=== PATIENT | male | born 1935 | race African-American/Black ===

== ENCOUNTER 2018-10-25 10:44 | Outpatient (CLI) | payer MEDICARE, OTHER ==
[~2018-10-25 10:44] MED LIST: ALEVE220 M2 PO; AMLODIPINE BESYL5 MG ORAL; CARVEDILOL12.5 MG ORAL; CLOPIDOGREL75 MG ORAL; DIOVAN320 MG ORAL; EMBREL; ENBREL50 MG/1 ML SUBQ; GEMFIBROZIL600 MG ORAL; LORATADINE10 M1 PO; RANITIDINE HCL150 M1 ORAL; TAMSULOSIN HCL0.4 MG ORAL; TRAVATAN Z5 ML OP
--- NOTE | 2018-10-25 15:14 | Diagnostic Imaging Report ---
Indications: Sinus congestion Technique: Spiral images obtained through the maxillofacial sinuses. No IV contrast utilized. Multiplanar reconstructions were generated.Total dose length product 556.08 mGycm. CTDIvol(s) 28.19 mGy. Dose reduction achieved using automated exposure control Comparison: none Findings: A mucous retention cyst is seen in the lateral wall of the right maxillary sinus. There is minimal medial mucosal thickening of the left maxillary sinus. There is mucosal thickening involving the anterior ethmoids bilaterally. The frontal sinuses are not pneumatized. The sphenoid sinuses are clear. The nasal septum is midline. Neither maxillary ostia is conclusively identified and the possibility of obstruction of either should be considered. There is evidence of prior bilateral cataract surgery. The salivary glands are unremarkable Impression: Minimal sinus disease, as described, including right maxillary mucous retention cyst, minimal left maxillary mucosal disease, bilateral anterior ethmoid mucosal disease. Neither maxillary ostium conclusively demonstrated, obstruction not excludable The CT scanner at [facility] is accredited by the [employer] and the scans are performed using protocols designed to limit radiation exposure to as low as reasonably achievable to attain images of sufficient resolution adequate for diagnostic evaluation.
== END 2018-10-25 12:44 | disposition home or self-care (01) ==
LOC: CAT 10:44
DX: J32.0 Chronic maxillary sinusitis (principal); M27.40 Unspecified cyst of jaw
CPT/HCPCS: 70486

== ENCOUNTER 2020-01-04 12:58 | Inpatient (IN) | payer MEDICARE, OTHER ==
[~2020-01-04] VITALS: Ht 177.8 cm; Wt 83.9 kg
[2020-01-04] VITALS (15 sets, daily range): BP systolic 103–125; BP diastolic 54–84
[2020-01-04] MEDS ORDERED: dilTIAZem HCl 25mg/5ml Inj IVP ONE (13:15)
[2020-01-04] MEDS ORDERED: dilTIAZem Premix 125mg/125ml 125 ML IVPB ONE (13:15)
--- NOTE | 2020-01-04 13:20 | Emergency Room Report ---
History of Present Illness General Chief Complaint: To Be Triaged Present Illness HPI 84-year-old male with a history of CAD status post triple bypass, hypertension, here with rapid heartbeat. Patient underwent EKG at a routine doctor's appointment today and was noted to have a fast heart rate and was sent immediately to the emergency department. Patient has no known history of this. At this time he does not have any complaints whatsoever. Denies headache, vision change, lightheadedness, fevers, chills, chest pain, shortness of breath, back pain, abdominal pain, nausea, vomiting, diarrhea, dysuria. Allergies: Coded Allergies: ASPIRIN (Verified Allergy, Unknown, Rash, 04/07/13) ATORVASTATIN (Verified Allergy, Unknown, HIP PAIN, 04/08/13) HIP PAIN CELECOXIB (Verified Allergy, Unknown, Rash, 04/08/13) RASH CODEINE (Verified Allergy, Rash, 04/08/13) IBUPROFEN (Verified Adverse Reaction, Unknown, 04/08/13) ITCHING Nursing Documentation-PMH Hx Hypertension: Yes Hx Diabetes: Yes - BORDERLINE, NO MEDS Hx Cancer: No Hx Neurological Problems: No Review of Systems All Other Systems: negative except mentioned in HPI Physical Exam Sp02 EP Interpretation: reviewed, normal General Appearance: no apparent distress, alert, non-toxic Head: normocephalic, atraumatic Eyes: bilateral eye normal inspection, bilateral eye PERRL ENT: hearing grossly normal, normal pharynx, no angioedema, normal voice Neck: full range of motion, supple/symm/no masses Respiratory: chest non-tender, lungs clear, normal breath sounds, speaking full sentences Cardiovascular #1: no edema, other - Midline sternotomy scar. Rate 135 bpm. Regular Cardiovascular #2: 2+ carotid (R), 2+ carotid (L), 2+ radial (R), 2+ radial (L), 2+ dorsalis pedis (R), 2+ dorsalis pedis (L) Gastrointestinal: normal bowel sounds, non tender, soft, non-distended, no guarding, no rebound Rectal: deferred Genitourinary: normal inspection, no CVA tenderness Musculoskeletal: back normal, normal range of motion, gait/station normal, non- tender Neurologic: alert, motor strength/tone normal, oriented x3, sensory intact, responsive, speech normal Psychiatric: judgement/insight normal, memory normal, mood/affect normal, no suicidal/homicidal ideation Lymphatic: no adenopathy Medical Decision Making Diagnostic Impression: Primary Impression: Atrial flutter with rapid ventricular response ER Course Total critical care time: Approximately 45 minutes Due to a high probability of clinically significant, life threatening de terioration, the patient required the highest level of preparedness to intervene emergently and I personally spent this critical care time directly and personally managing the patient. This critical care time included obtaining a history, examining the patient, pulse oximetry, ordering and reviewing studies, ordering treatments, evaluating response to treatment and updating management plan as needed, frequent reassessment and discussion with other providers as well as arranging for ultimate disposition. This critical to care time was performed to assess and manage the high probability of life-threatening deterioration that could result in multiorgan failure. This critical care time is separate from the separately billable procedures and treating other patients. EKG 1310: EKG: Atrial flutter with rapid ventricular response 136 bpm, no ischemia, intervals WNL. No ectopy Rhythm strip: patient monitored for arrhythmias - no malignant dysrhythmias, runs of PVCs, nor pauses noted Cardizem bolus and drip given EKG 1320: EKG: Rate 87 bpm, atrial flutter, no ischemia, intervals WNL. No ectopy Rhythm strip: patient monitored for arrhythmias - no malignant dysrhythmias, runs of PVCs, nor pauses noted Laboratory Tests Test 01/04/20 13:25 White Blood Count 15.1 K/UL (4.8-10.8) H Red Blood Count 3.47 M/UL (4.70-6.10) L Hemoglobin 10.3 G/DL (14.2-18.0) L Hematocrit 34.2 % (42.0-52.0) L Mean Corpuscular Volume 99 FL (80-99) Mean Corpuscular Hemoglobin 29.6 PG (27.0-31.0) Mean Corpuscular Hemoglobin Concent 30.0 G/DL (32.0-36.0) L Red Cell Distribution Width 13.9 % (11.6-14.8) Platelet Count 196 K/UL (150-450) Mean Platelet Volume 6.5 FL (6.5-10.1) Neutrophils (%) (Auto) 78.5 % (45.0-75.0) H Lymphocytes (%) (Auto) 9.0 % (20.0-45.0) L Monocytes (%) (Auto) 10.3 % (1.0-10.0) H Eosinophils (%) (Auto) 1.2 % (0.0-3.0) Basophils (%) (Auto) 1.0 % (0.0-2.0) Sodium Level 132 MMOL/L (136-145) L Potassium Level 3.5 MMOL/L (3.5-5.1) Chloride Level 99 MMOL/L (98-107) Carbon Dioxide Level 25 MMOL/L (21-32) Anion Gap 8 mmol/L (5-15) Blood Urea Nitrogen 21 mg/dL (7-18) H Creatinine 1.6 MG/DL (0.55-1.30) H Estimated Glomerular Filtration Rate 50.3 mL/min (>60) Glucose Level 116 MG/DL (74-106) H Calcium Level 9.6 MG/DL (8.5-10.1) Total Bilirubin 0.8 MG/DL (0.2-1.0) Aspartate Amino Transferase (AST) 39 U/L (15-37) H Alanine Aminotransferase (ALT) 27 U/L (12-78) Alkaline Phosphatase 98 U/L (46-116) Troponin I 0.000 ng/mL (0.000-0.056) Pro-B-Type Natriuretic Peptide 8070 pg/mL (0-125) H Total Protein 7.0 G/DL (6.4-8.2) Albumin 2.2 G/DL (3.4-5.0) L Globulin 4.8 g/dL Albumin/Globulin Ratio 0.5 (1.0-2.7) L 84-year-old male here with rapid ventricular rate. Patient was tachycardic in the 130s on arrival to the emergency department. EKG revealed atrial flutter which is a new diagnosis for the patient. Patient was given a Cardizem bolus and drip. Currently on the Cardizem drip. Dr. Lyon his primary care provider was informed. Currently the plan is to keep the patient in the ICU while on the drip. Signed out to oncoming physician Dr. Jennings. Travis Boyd M.D. Jan 04, 2020 13:20
--- NOTE | 2020-01-04 13:28 | NUR ---
ED Nurse Note: Patient walked in due to palpitation. Per patient, he was referred by Dr Lyon due to heart rate elevation with EKG evaluation. Patient denies presence of CP or SOB. Patient relates occasional lightheadedness when watching TV. Patient is AAO x4, follows commands with non labored breathing. Sinus tach on school bus monitor.
--- NOTE | 2020-01-04 13:50 | NUR ---
ED Nurse Note: Blood specimen sent to lab.
[2020-01-04 13:57] LABS: EOSINOPHILS % (AUTO) 1.2 % (0.0-3.0); HEMATOCRIT 34.2 % (42.0-52.0); HEMOGLOBIN 10.3 G/DL (14.2-18.0); MEAN CORPUSCULAR VOLUME 99 FL (80-99); MONOCYTES % (AUTO) 10.3 % (1.0-10.0); NEUTROPHILS % (AUTO) 78.5 % (45.0-75.0); PLATELET COUNT 196 K/UL (150-450); RED BLOOD COUNT 3.47 M/UL (4.70-6.10); RED CELL DISTRIBUTION WIDTH 13.9 % (11.6-14.8); WHITE BLOOD COUNT 15.1 K/UL (4.8-10.8)
--- NOTE | 2020-01-04 14:00 | NUR ---
ED Nurse Note: IVAN okay not to collect uirne sample at this time.
[2020-01-04 14:08] LABS: CALCIUM 9.6 MG/DL (8.5-10.1); CREATININE 1.6 MG/DL (0.55-1.30); POTASSIUM 3.5 MMOL/L (3.5-5.1)
[2020-01-04 14:14] LABS: ALBUMIN 2.2 G/DL (3.4-5.0); ALBUMIN/GLOBULIN RATIO 0.5 (1.0-2.7); BILIRUBIN,TOTAL 0.8 MG/DL (0.2-1.0)
--- NOTE | 2020-01-04 14:30 | NUR ---
ED Nurse Note: Patient is calm and no acute distress at this time. Pt still denies presence of CP and HR at 98 at this time. ERMDa aware.
--- NOTE | 2020-01-04 15:22 | Diagnostic Imaging Report ---
Indication: Shortness of breath Technique: XRAY Chest 1v Comparison: None Findings: Heart size is within normal limits. There is evidence of prior cardiac surgery with median sternotomy and multiple surgical clips suggesting CABG. No pleural effusion or pneumothorax. No radiographic evidence to suggest pulmonary edema. There is elevation of the right hemidiaphragm with mild streaky opacities at the right base. No acute abnormality. IMPRESSION: Elevation of the right hemidiaphragm with adjacent streaky opacity at the right base, likely atelectasis or scarring. Evidence of prior pelvic surgery with median sternotomy and multiple surgical clips suggesting CABG. Correlate with history.
--- NOTE | 2020-01-04 15:30 | NUR ---
ED Nurse Note: Covid19 swab sent.
--- NOTE | 2020-01-04 15:31 | NUR ---
REPORT GIVEN TO MERCEDES IN ICU PATIENT IS TO BE TRANSFERD TO ROOM 246 F VIA ACLS PROTOCOL CONTINUE TO BE ON MARC YU
--- NOTE | 2020-01-04 16:00 | NUR ---
NURSE NOTES: Patient received from ED. Patient stable, AOx4 with no complaints of pain. No s/sx of distress. Controlled afib on monitor worker. Heart sounds benign. Cardizem drip infusing from ED at 5mg through peripheral IV. Breath sounds diminished in all lobes with RR even and unlabored on RA with o2 sat 100%. Radial pulses present. Pedal pulses present with trace edema with slight pitting. Voided in urinal 200mL tay, clear urine. Side rails upx2, call light within reach, bed low and locked. Belongings with patient including glasses. Last BM reported yesterday. Normal in consistency.
[2020-01-04] MEDS ORDERED: dilTIAZem Premix 125mg/125ml 125 ML IVPB SCH (17:00)
[2020-01-04] MEDS: dilTIAZem HCl 60mg tab ORAL SCH (17:43)
[2020-01-04] MEDS: Eliquis 5mg tablet ORAL SCH (17:44)
--- NOTE | 2020-01-04 18:05 | NUR ---
NURSE NOTES: Patient given scheduled medications. HR varying from 79-92. Will allow for PO cardizem to take effect before titrating drip.
--- NOTE | 2020-01-04 19:00 | NUR ---
NURSE NOTES: Received patient and report from MARIA R Barker. Patient is observed resting in bed and remains alert and oriented x3-4. No pain noted upon assessment. Pt is currently on 2L NC with an O2 saturation of 100% noted. Bilateral lower lobe breath sounds noted to be mildly diminished upon auscultation. Pt noted to be AFib on tele monitor with a HR of 79. L AC 20g IV catheter noted which remains asymptomatic, intact and patent. Cardizem currently infusing at 5mg/hr will titrate per order. No s/sx of adverse effects noted. Active bowel sounds noted in all four quadrants; abdomen remains round, soft and nontender. Diagnostics reviewed at bedside. Skin remains intact. R arm deformity noted upon assessment, pt states it healed improperly from a fall 26 years ago. Fall, Aspiration and Skin precautions observed. Pt remains resting in bed; Bed remains in the lowest position with the safety wheels engaged, call light within reach, side rails up x3 and bed alarm activated. Will continue plan of care. Will continue to monitor.
--- NOTE | 2020-01-04 19:14 | NUR ---
NURSE HAND-OFF REPORT: Latest Vital Signs: Temperature 97.3 , Pulse 92 , B/P 125 /66 , Respiratory Rate 24 , O2 SAT 100 , Nasal Cannula, O2 Flow Rate 2.0 . Vital Sign Comment: [] EKG Rhythm: Atrial Fibrillation Rhythm change?: N MD Notified?: - MD Response: Latest Rojas Fall Score: Fall Risk: Safety Measures: Call light Within Reach, Bed Alarm Zone 1, Side Rails Side Rails x2, Bed position Low and Locked. Fall Precautions: Patient Fall Education Report given to [].
--- NOTE | 2020-01-04 21:00 | NUR ---
NURSE NOTES: Pt refuses bed bath and linen change at this time. Bedside assessment performed, assessed pt for pain with a FLACC score of 0 noted. HR remains <80 per order, will attempt to titrate Cardizem. Will continue to monitor and reassess. Zosyn administered as ordered, no adverse effects noted at this time. Antibiotic continues to infuse. R FA 22g IV catheter placed on first attempt without incident. Respiratory status remains stable. Pt repositioned for comfort and safety. Fall, Aspiration and Skin precautions observed. Pt remains resting in bed; Bed remains in the lowest position with the safety wheels engaged, call light within reach, side rails up x3 and bed alarm activated. Will continue plan of care. Will continue to monitor.
[2020-01-04] MEDS: Carvedilol 6.25mg Tab ORAL SCH (21:47)
[2020-01-04] MEDS: Piperacillin/Tazobactam 3.375 GM in NS 110 ML IVPB SCH (22:25)
--- NOTE | 2020-01-04 23:00 | NUR ---
NURSE NOTES: Pt noted to be sleeping comfortably at this time. Bedside assessment performed, assessed pt for pain with a FLACC score of 0 noted. HR remains <80 per order, will attempt to titrate Cardizem. Will continue to monitor and reassess. Respiratory status remains stable. STAT UA order noted, pt states he is unable to void at this time. Pt remains alert and oriented x4, no in and out cath at this time. Pt repositioned for comfort and safety. Fall, Aspiration and Skin precautions observed. Pt remains resting in bed; Bed remains in the lowest position with the safety wheels engaged, call light within reach, side rails up x3 and bed alarm activated. Will continue plan of care. Will continue to monitor.
--- NOTE | 2020-01-04 23:45 | Consultation ---
DATE OF CONSULTATION: 01/04/2020 CARDIOLOGY CONSULTATION CONSULTING PHYSICIAN: Ehsan Lyon MD REFERRING PHYSICIAN: Anjum Gaston MD REASON FOR CONSULTATION: Supraventricular tachycardia. HISTORY OF PRESENT ILLNESS: This 84-year-old male with a history of coronary artery disease and coronary artery bypass graft surgery over 25 years ago has been feeling poorly for the past 2 days. Today, he was seen again in my office and noted to have a rapid heart rate of over 140. He also was somewhat weak, confused, and hypoxic on oxygen saturation taken at my office notably at 84%. He was driven to the emergency room by me for further evaluation. The patient denies chest pain or shortness of breath. His significant other notes him to be weak and withdrawn with poor appetite for the past couple of days. He denies nausea, vomiting, abdominal pain, dysuria, or frequency. He denies cough, congestion, or fever. There is no known history of COVID-19 exposure. ALLERGIES: Notable for aspirin, statin drugs, ibuprofen, celecoxib, and codeine. He is not allergic to all nonsteroidal drugs however. PAST MEDICAL HISTORY: 1. Rheumatoid arthritis. 2. Hypertensive heart disease. 3. Type 2 diabetes mellitus, which is diet controlled. 4. Coronary artery disease. 5. Hypertriglyceridemia. 6. Prostatic hypertrophy. 7. Diverticulosis with history of diverticulitis. 8. Allergic rhinitis. 9. Prior joint surgeries. 10. B12 deficiency due to pernicious anemia. 11. Glaucoma with blindness. 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 There is no history of substance abuse. He has a very distant smoking history. He lives with his significant other. FAMILY HISTORY: Noncontributory. REVIEW OF SYSTEMS: A 10-point review of systems performed, all systems negative other than noted above. PHYSICAL EXAMINATION: GENERAL: Withdrawn, slightly, confused, but coherent. No acute distress. VITAL SIGNS: Blood pressure 117/71, heart rate 86, respirations 24, afebrile. HEENT: Conjunctivae pink. Vision severely impaired. Oropharynx clear. NECK: Supple with no apparent jugular venous distention. LUNGS: With bilateral breath sounds. Diminished at the bases. CARDIAC: Regular rhythm. Rapid rate. Normal S1, S2. No appreciable murmur. ABDOMEN: Soft. No bruits. Slightly distended. EXTREMITIES: No clubbing or cyanosis. No edema. There are severe joint deformities consistent with rheumatoid of the extremities. NEUROLOGIC: No focal deficits. LABORATORY DATA: Reviewed. EKG was sinus with atrial flutter/supraventricular tachycardia at 141. White count 15.2, hemoglobin 10.3. Sodium 132, potassium 3.5, bicarb 25, BUN 21, creatinine 1.6. Albumin 2.2. Chest x-ray, right basilar atelectasis. Troponin is 0. IMPRESSION: 1. Paroxysmal supraventricular tachyarrhythmias, likely atrial flutter. 2. Ischemic heart disease with stable angina. 3. Metabolic encephalopathy. 4. Acute on chronic diastolic congestive heart failure with elevated natriuretic peptide of over 8000. 5. Rheumatoid arthritis. 6. Hyponatremia. 7. Borderline hypokalemia. 8. Leukocytosis. 9. Severe protein-calorie malnutrition. PLAN: 1. ICU monitoring. 2. IV Cardizem. Transition to oral dosing in combination with beta blockade. 3. Full anticoagulation for cardioembolic prophylaxis. 4. Consider further antiarrhythmic therapy. 5. Additional potassium replacement. 6. No diuresis at this time. 7. Reassess volume status and adjust therapy accordingly. 8. Protein supplements. 9. Empiric antimicrobials. 10. Await results of urine studies and abdominal ultrasound. Ehsan Lyon M.D. DR: NATHAN JOB#: [id number] CC:
[2020-01-05] VITALS (27 sets, daily range): BP systolic 105–141; BP diastolic 37–72
[2020-01-05] MEDS: dilTIAZem HCl 60mg tab ORAL SCH ×6 (00:05→23:32)
--- NOTE | 2020-01-05 01:00 | NUR ---
NURSE NOTES: Pt noted to be sleeping comfortably at this time. Bedside assessment performed, assessed pt for pain with a FLACC score of 0 noted. HR remains <80 per order, will attempt to titrate Cardizem. Cardizem continues to infuse at 2.5mg/hr. Will continue to monitor and reassess. Respiratory status remains stable. Pt repositioned for comfort and safety. Fall, Aspiration and Skin precautions observed. Pt remains resting in bed; Bed remains in the lowest position with the safety wheels engaged, call light within reach, side rails up x3 and bed alarm activated. Will continue plan of care. Will continue to monitor.
--- NOTE | 2020-01-05 03:00 | NUR ---
NURSE NOTES: Pt noted to be sleeping comfortably at this time. Bedside assessment performed, assessed pt for pain with a FLACC score of 0 noted. HR now noted to remain in the 60's subsequently Cardizem on hold. Will continue to monitor and reassess. Respiratory status remains stable. Pt repositioned for comfort and safety. Fall, Aspiration and Skin precautions observed. Pt remains resting in bed; Bed remains in the lowest position with the safety wheels engaged, call light within reach, side rails up x3 and bed alarm activated. Will continue plan of care. Will continue to monitor.
--- NOTE | 2020-01-05 05:00 | NUR ---
NURSE NOTES: Pt noted to be sleeping comfortably at this time. Bedside assessment performed, assessed pt for pain with a FLACC score of 0 noted. Cardizem gtt remains on hold. HR noted to fluctuate from 55-75, po Cardizem held for patient safety. Will continue to monitor and reassess. Respiratory status remains stable. Pt repositioned for comfort and safety. Fall, Aspiration and Skin precautions observed. Pt remains resting in bed; Bed remains in the lowest position with the safety wheels engaged, call light within reach, side rails up x3 and bed alarm activated. Will continue plan of care. Will continue to monitor.
[2020-01-05] MEDS: Piperacillin/Tazobactam 3.375 GM in NS 110 ML IVPB SCH ×3 (05:14→21:49)
--- NOTE | 2020-01-05 07:02 | NUR ---
NURSE HAND-OFF REPORT: Latest Vital Signs: Temperature 98.2 , Pulse 65 , B/P 120 /52 , Respiratory Rate 19 , O2 SAT 100 , Nasal Cannula, O2 Flow Rate 2.0 . Vital Sign Comment: VS remained stable for duration of shift EKG Rhythm: Atrial Fibrillation Rhythm change?: N MD Notified?: N MD Response: N/A Latest Rojas Fall Score: Fall Risk: Safety Measures: Call light Within Reach, Bed Alarm Zone 2, Side Rails Side Rails x3, Bed position Low and Locked. Fall Precautions: Yellow Socks Door Sign Patient Fall Education Report given to MARIA R Garcia. Endorsed plan of care.
[2020-01-05 07:16] LABS: APPEARANCE,URINE SLIGHTLY CLOUDY; BILIRUBIN, URINE NEGATIVE (NEGATIVE); GLUCOSE, URINE (UA) NEGATIVE (NEGATIVE); KETONES,URINE NEGATIVE (NEGATIVE); LEUKOCYTE ESTERASE ,URINE 1+ (NEGATIVE); NITRITE,URINE NEGATIVE (NEGATIVE); PH,URINE 6 (4.5-8.0); PROTEIN,URINE 2+ (NEGATIVE); UROBILINOGEN,URINE NORMAL MG/DL (0.0-1.0)
[2020-01-05 07:30] LABS: COLOR,URINE YELLOW
--- NOTE | 2020-01-05 07:30 | NUR ---
NURSE NOTES: Patient received from Tabitha HECK. Patient stable, AOx4 with no complaints of pain. No s/sx of distress. Controlled afib on environmental monitoring technician. Heart sounds benign. Cardizem drip stopped at this time. Breath sounds diminished in all lobes with RR even and unlabored on RA with o2 sat 100%. Radial pulses present. Pedal pulses present with trace edema with slight pitting. Voided in urinal 150mL tay, clear urine. Side rails upx2, call light within reach, bed low and locked. Belongings with patient including glasses. No BM.
--- NOTE | 2020-01-05 08:30 | History and Physical Report ---
DATE OF ADMISSION: 01/04/2020 CHIEF COMPLAINT: SVT. HISTORY OF PRESENT ILLNESS: The patient is an pleasant 84-year-old male, well known to me. He has a history of ischemic cardiomyopathy status post CABG, rheumatoid arthritis, hypertension, diabetes, BPH, and hyperlipidemia who presented from home with complaints of one week of progressive shortness of breath, tachycardia, and palpitation. According to the patient, he was well until several days prior to admission when he noted the onset of mild shortness of breath. He had a nonproductive cough, noted that his heart rate was elevated. He saw his tailer in who recommended that he go to the emergency room. On evaluation there, the patient noted to be in SVT. He was given IV Cardizem and later put on a Cardizem drip and is now admitted to intensive care unit for further evaluation and care. PAST MEDICAL HISTORY: As above. PAST SURGICAL HISTORY: Includes CABG. CURRENT MEDICATIONS: Reconciled and reviewed. ALLERGIES: Include aspirin, statin, ibuprofen, Celebrex, and codeine. FAMILY HISTORY: Noncontributory. SOCIAL HISTORY: Negative for tobacco, ethanol, or drugs. REVIEW OF SYSTEMS: GENERAL: No fevers or chills. HEENT: No headaches or visual changes. CARDIOPULMONARY: No chest pain. Positive shortness of breath. GASTROINTESTINAL: No nausea or vomiting. GENITOURINARY: No urgency or frequency. MUSCULOSKELETAL: No joint pain or swelling. NEUROLOGIC: No history of seizures. PHYSICAL EXAMINATION: VITAL SIGNS: Temperature 98.2, pulse 63, respirations 21, and blood pressure 112/54. GENERAL: The patient is well developed, no apparent distress. Alert and oriented x3. HEENT: Head normocephalic and atraumatic. Sclerae anicteric. Oropharynx clear. NECK: Supple. HEART: Regular rate and rhythm. LUNGS: Clear to auscultation bilaterally. ABDOMEN: Soft, nontender, and nondistended. EXTREMITIES: Without clubbing, cyanosis, or edema. The patient is noted to have joint deformities in the upper extremities. NEUROLOGIC: Nonfocal. LABORATORY DATA: White count 15, hemoglobin 10, hematocrit 34. Sodium 132, potassium 3.5, BUN 21, creatinine 1.6. Natriuretic peptide level is 8000. Chest x-ray showed elevated right hemidiaphragm with questionable streaky opacity at the right base. The patient's rapid COVID test was negative. ASSESSMENT: This is an 84-year-old male admitted with complaints of shortness of breath secondary to SVT problems: 1. SVT, currently better controlled. 2. History of ischemic cardiomyopathy. 3. Hypertension. 4. Diabetes. 5. History of rheumatoid arthritis. PLAN: 1. IV and oral Cardizem, beta blockade as tolerated. 2. Supplemental oxygen. 3. Monitor electrolytes and replace as needed. 4. Empiric antibiotic therapy to cover for pneumonia, stroke prophylaxis with Eliquis. 5. The patient's status is currently guarded. Anjum Gaston M.D. DR: Beth JOB#: [id number] CC:
[2020-01-05] MEDS: Carvedilol 6.25mg Tab ORAL SCH ×2 (09:00→20:53)
[2020-01-05] MEDS: Eliquis 5mg tablet ORAL SCH ×2 (09:13→18:08)
--- NOTE | 2020-01-05 09:30 | NUR ---
NURSE NOTES: Patient stable with no s/sx of pain or distress. Medications given. Will space out cardiac medications due to reported sensitivity/response last night.
[2020-01-05 11:46] LABS: HEMATOCRIT 29.6 % (42.0-52.0); HEMOGLOBIN 9.3 G/DL (14.2-18.0); MEAN CORPUSCULAR VOLUME 95 FL (80-99); NEUTROPHILS % (AUTO) 75.5 % (45.0-75.0); PLATELET COUNT 207 K/UL (150-450); RED BLOOD COUNT 3.13 M/UL (4.70-6.10); RED CELL DISTRIBUTION WIDTH 14.3 % (11.6-14.8); WHITE BLOOD COUNT 12.9 K/UL (4.8-10.8)
[2020-01-05 11:47] LABS: BASOPHILS % (AUTO) 0.8 % (0.0-2.0); LYMPHOCYTES % (AUTO) 9.5 % (20.0-45.0); MONOCYTES % (AUTO) 11.3 % (1.0-10.0)
--- NOTE | 2020-01-05 12:10 | NUR ---
WELDING PROCESS SPECIALIST NOTE SW met w/ pt and completed the psychosocial assessment. Pt presents as A&O4x. PT resides w/ his caregiver at [id number], [place] [address]. Pt receives SS service 135 hours/mo. Pt has two adult daughters living in [place], [place] and [place]. Pt reports he is ambulatory w/o DME, however his caregiver always accompanies w/ him when he walks, holding her arm. Pt reports his caregiver assists him w/ some ADLs and IADLs including bathing and transportation. Pt reports he receives sufficient support from his caregiver. Pt denies having substance abuse issue/mental health issue. Per Mr. Smalls, his caregiver, Rere Cartagena has financial POA document. However, he was unsure of his medical POA. Pt expresses full code. Pt does not share any social service concern/needs at this time. SW to F/U as needed. Emergency contact: Rere Cartagena (caregiver) [phone]
[2020-01-05 12:29] LABS: ALBUMIN 1.9 G/DL (3.4-5.0); ALBUMIN/GLOBULIN RATIO 0.5 (1.0-2.7); BILIRUBIN,TOTAL 0.5 MG/DL (0.2-1.0); CALCIUM 8.3 MG/DL (8.5-10.1); CREATININE 1.4 MG/DL (0.55-1.30); POTASSIUM 2.8 MMOL/L (3.5-5.1)
[2020-01-05] MEDS ORDERED: Varibar Thin Liquid powder 148gm MC PRN (14:15)
[2020-01-05] MEDS ORDERED: Varibar Nectar 240ml MC PRN (14:15)
[2020-01-05] MEDS ORDERED: Varibar Pudding 230ml MC PRN (14:15)
[2020-01-05] MEDS ORDERED: Varibar Honey 250ml MC PRN (14:15)
--- NOTE | 2020-01-05 14:30 | NUR ---
NURSE HAND-OFF REPORT: Latest Vital Signs: Temperature 97.7 , Pulse 63 , B/P 124 /60 , Respiratory Rate 21 , O2 SAT 100 , Nasal Cannula, O2 Flow Rate 2.0 . Vital Sign Comment: STABLE EKG Rhythm: Atrial Fibrillation Rhythm change?: N MD Notified?: - MD Response: Latest Rojas Fall Score: Fall Risk: Safety Measures: Call light Within Reach, Bed Alarm Zone 2, Side Rails Side Rails x3, Bed position Low and Locked. Fall Precautions: Yellow Socks Door Sign Patient Fall Education Report given to Vignesh RN. Patient stable at this time. Potassium level reported to Dr. Lyon and orders received. 40mEq of potassium and Zosyn given now. Endorsed plan of care and order to transfer to telemetry.
--- NOTE | 2020-01-05 14:31 | NUR ---
NURSE NOTES: Received patient from Radha HECK. Patient is awake, alert and oriented x4. Sinus Rhythm on the heart monitor, HR 62. Receiving oxygen via 2L/min nasal cannula, O2 saturation at 100%. IV site is left AC 20g and left forearm 22g patent and intact. Bed is locked, placed in lowest position, side rails up x3, bed alarm on, head of bed elevated, call light within reach. Will continue to monitor.
--- NOTE | 2020-01-05 15:00 | NUR ---
CASE MANAGEMENT:REVIEW LATE ENTRY 84 YR OLD FEMALE PRESENTED TO ER CC: SENT FROM MD'S OFFICE PMH: TRIPLE BYPASS SI: AFLUTTER W/RVR 97.8 135 18 103/65 97% ON RA WBC+15.1 NA-132 BUN+21 CR+1.6 BNP+8070 IS: IV CARDIZEM X2 500CC NS BOLUS CXR : TO TELEMETRY UNIT
--- NOTE | 2020-01-05 15:34 | NUR ---
NURSE NOTES: Patient seen by Speech Therapist at bedside.
--- NOTE | 2020-01-05 16:13 | NUR ---
Bedside Swallow evaluation received from dr. Gaston. Chart reviewed and RN interviewed relative to patients hx, and evaluation completed dysphagia risk factors for this 84 y.o. gentleman include hx of hypoxia, shortness of breath. Initial Impression: Patient presents with efficacy of oropharyngeal phase of swallow essentially intact. He presents as safe for soft solids and thin liquids. Earlier, staff report patient responding with coughing when drinking thin liquids. During this visit there were no overt s/s of aspiration. He was able to follow commands for an oral motor exam. Lingual/labial/mandibular musculature present as intact relative to strength/ROM/coordination. Dentition is WFL (permanent teeth/some missing). With P.O. trials of uncontrolled amounts of thin via straw, puree presented via spoon, and soft solid presented in bite size pieces patient demonstrated intact swallow. Full laryngeal excursion, trigger of pharyngeal phase of swallow timely. Post swallow, patient belched which is consistent with GERD. No further skilled ST services appear to be needed at this time. Recommendations: 1. Continue current diet 2. GERD precautions Thank you for this referral.
--- NOTE | 2020-01-05 19:16 | NUR ---
NURSE HAND-OFF REPORT: Latest Vital Signs: Temperature 97.7 , Pulse 65 , B/P 114 /68 , Respiratory Rate 18 , O2 SAT 100 , Nasal Cannula, O2 Flow Rate 2.0 . Vital Sign Comment: EKG Rhythm: Atrial Fibrillation Rhythm change?: N MD Notified?: - MD Response: Latest Rojas Fall Score: Fall Risk: Safety Measures: Call light Within Reach, Bed Alarm Zone 2, Side Rails Side Rails x3, Bed position Low and Locked. Fall Precautions: Yellow Socks Door Sign Patient Fall Education Report given to Shilpa HECK.
--- NOTE | 2020-01-05 19:20 | NUR ---
NURSE NOTES: Received pt with Dx Aflutter with RVR , now on SR Bp stable afebrile. AO x4 , on 02 at 2L/NC, voiding well via urinal. Heplock Left AC g20 and and left FA 22 patent to flushes. Skin is intact . No CP nor SOB noted. Explained pt that he will be transferred to lower level of care (telemetry unit ) when bed is available. Verbalized understanding. Will continue to monitor.
[2020-01-05] MEDS: Tamsulosin 0.4mg cap ORAL SCH (20:53)
[2020-01-05] MEDS: Latanoprost 0.005% Opth 2.5ml Soln BOTH EYES SCH (20:56)
--- NOTE | 2020-01-05 22:00 | NUR ---
NURSE NOTES: Voiding well per urinal adequate amt of yellowish urine.
[2020-01-06] VITALS (19 sets, daily range): BP systolic 99–136; BP diastolic 54–73
--- NOTE | 2020-01-06 | NUR ---
NURSE NOTES: Converted to SR at this time vss.
--- NOTE | 2020-01-06 00:01 | Cardiology Progress Note ---
Subjective DATE OF SERVICE: Jan 05, 2020 Denies CP, palps or SOB. Confused at times. Monitor: Sinus bradyarrhythmia with PAC's Now tapered off IV diltiazem; oral dose required adjusting due to slow heart rate. Objective Last 24 Hour Vital Signs Date Time Temp Pulse Resp B/P (MAP) Pulse Ox O2 Delivery O2 Flow Rate FiO2 01/05/20 23:32 71 110/37 01/05/20 20:53 63 122/63 01/05/20 20:00 65 01/05/20 20:00 97.8 63 22 124/62 (82) 100 01/05/20 19:29 100 Nasal Cannula 3.0 32 01/05/20 19:00 65 18 114/68 (83) 100 01/05/20 18:09 72 117/63 01/05/20 18:00 67 22 117/63 (81) 99 01/05/20 17:00 63 21 111/48 (69) 98 01/05/20 16:29 2.0 01/05/20 16:13 Nasal Cannula 2.0 01/05/20 16:00 69 21 105/72 (83) 100 01/05/20 15:36 66 01/05/20 15:00 63 21 124/60 (81) 100 01/05/20 14:00 58 19 118/56 (76) 98 01/05/20 13:00 64 20 114/60 (78) 99 01/05/20 12:00 Nasal Cannula 2.0 01/05/20 12:00 97.7 01/05/20 12:00 71 20 111/54 (73) 100 01/05/20 12:00 61 01/05/20 11:49 58 01/05/20 11:00 61 19 108/51 (70) 99 01/05/20 10:00 65 20 121/61 (81) 100 01/05/20 09:13 70 141/55 01/05/20 09:00 61 20 141/55 (83) 100 01/05/20 08:00 97.9 64 17 109/52 (71) 99 01/05/20 08:00 Nasal Cannula 2.0 01/05/20 07:40 66 01/05/20 07:00 65 19 120/52 (74) 100 01/05/20 06:45 98 Nasal Cannula 3.0 32 01/05/20 06:00 61 20 116/50 (72) 99 01/05/20 05:14 59 01/05/20 05:00 65 17 112/62 (79) 100 01/05/20 04:00 98.2 63 21 112/54 (73) 100 01/05/20 04:00 Nasal Cannula 2.0 01/05/20 03:15 66 21 122/56 (78) 97 01/05/20 03:10 71 01/05/20 03:00 66 21 124/55 (78) 97 01/05/20 02:00 72 21 122/60 (80) 98 01/05/20 01:00 77 20 128/69 (88) 100 01/05/20 00:30 74 19 128/64 (85) 99 01/05/20 00:15 71 17 125/57 (79) 97 01/05/20 00:05 70 129/57 01/05/20 00:00 98.2 72 22 129/57 (81) 100 01/05/20 00:00 Nasal Cannula 2.0 ROS: no change from my evaluation of 01/04/20. HEENT: normal ENT inspection RHYTHM: NSR, SB, PACs, other - AFib/flutter LUNGS: lungs clear bilaterally CARDIAC: normal rate, normal S1 and S2, gallop/S4 ABDOMEN: normal bowel sounds, non tender, soft EXTREMITIES: No edema, other - Large joint deformities c/w rheumatoid arthritis Laboratory Tests Test 01/05/20 05:00 01/05/20 11:40 Urine Color Yellow Urine Appearance Slightly cloudy Urine pH 6 (4.5-8.0) Urine Specific [place] 1.010 (1.005-1.035) Urine Protein 2+ (NEGATIVE) H Urine Glucose (UA) Negative (NEGATIVE) Urine Ketones Negative (NEGATIVE) Urine Blood 2+ (NEGATIVE) H Urine Nitrite Negative (NEGATIVE) Urine Bilirubin Negative (NEGATIVE) Urine Urobilinogen Normal MG/DL (0.0-1.0) Urine Leukocyte Esterase 1+ (NEGATIVE) H Urine RBC 0-2 /HPF (0 - 0) H Urine WBC 0-2 /HPF (0 - 0) Urine Squamous Epithelial Cells Occasional /LPF Urine Bacteria Moderate /HPF (NONE) H White Blood Count 12.9 K/UL (4.8-10.8) H Red Blood Count 3.13 M/UL (4.70-6.10) L Hemoglobin 9.3 G/DL (14.2-18.0) L Hematocrit 29.6 % (42.0-52.0) L Mean Corpuscular Volume 95 FL (80-99) Mean Corpuscular Hemoglobin 29.6 PG (27.0-31.0) Mean Corpuscular Hemoglobin Concent 31.3 G/DL (32.0-36.0) L Red Cell Distribution Width 14.3 % (11.6-14.8) Platelet Count 207 K/UL (150-450) Mean Platelet Volume 6.2 FL (6.5-10.1) L Neutrophils (%) (Auto) 75.5 % (45.0-75.0) H Lymphocytes (%) (Auto) 9.5 % (20.0-45.0) L Monocytes (%) (Auto) 11.3 % (1.0-10.0) H Eosinophils (%) (Auto) 3.0 % (0.0-3.0) Basophils (%) (Auto) 0.8 % (0.0-2.0) Sodium Level 132 MMOL/L (136-145) L Potassium Level 2.8 MMOL/L (3.5-5.1) L Chloride Level 100 MMOL/L (98-107) Carbon Dioxide Level 25 MMOL/L (21-32) Anion Gap 7 mmol/L (5-15) Blood Urea Nitrogen 18 mg/dL (7-18) Creatinine 1.4 MG/DL (0.55-1.30) H Estimat Glomerular Filtration Rate 58.7 mL/min (>60) Glucose Level 114 MG/DL (74-106) H Calcium Level 8.3 MG/DL (8.5-10.1) L Magnesium Level 2.0 MG/DL (1.8-2.4) Total Bilirubin 0.5 MG/DL (0.2-1.0) Aspartate Amino Transf (AST/SGOT) 25 U/L (15-37) Alanine Aminotransferase (ALT/SGPT) 21 U/L (12-78) Alkaline Phosphatase 85 U/L (46-116) Troponin I 0.000 ng/mL (0.000-0.056) Total Protein 6.1 G/DL (6.4-8.2) L Albumin 1.9 G/DL (3.4-5.0) L Globulin 4.2 g/dL Albumin/Globulin Ratio 0.5 (1.0-2.7) L Microbiology Date/Time Source Procedure Growth Status 01/04/20 15:30 Nasopharynx SARS-CoV-2 RdRp Gene Assay - Final Complete 01/04/20 15:20 Rectum Received Assessment/Plan Assessment/Plan Paroxysmal Atrial flutter/fib with RVR; now converted to sinus rhythm Sinus bradycardia due to meds Ischemic cardiomyopathy Rheumatoid arthritis Acute on chronic diastolic CHF Hypokalemia Leukocytosis Titrate diltiazem and beta neli DC anti-coagulation; high fall risk Empiric antibiotics Potassium repletion; check magnesium Restart clopidgrel Mobilize Ehsan Lyon MD Jan 06, 2020 00:01
--- NOTE | 2020-01-06 01:26 | NUR ---
NURSE NOTES: Dozing on and off with vss.
--- NOTE | 2020-01-06 03:00 | NUR ---
NURSE NOTES: Voiding well per urinal. SR on the monitor.
--- NOTE | 2020-01-06 05:00 | NUR ---
NURSE NOTES: Complete bed bath with bed changed was done.
[2020-01-06] MEDS: dilTIAZem HCl 60mg tab ORAL SCH ×3 (05:59→18:24)
[2020-01-06] MEDS: Piperacillin/Tazobactam 3.375 GM in NS 110 ML IVPB SCH ×3 (06:00→22:03)
--- NOTE | 2020-01-06 06:30 | NUR ---
NURSE NOTES: Pt on SR Bp stable. Dr Gaston at bedside, no orders given.
--- NOTE | 2020-01-06 07:29 | NUR ---
NURSE HAND-OFF REPORT: Latest Vital Signs: Temperature 98.0 , Pulse 66 , B/P 131 /63 , Respiratory Rate 22 , O2 SAT 100 , Nasal Cannula, O2 Flow Rate 2.0 . Vital Sign Comment: EKG Rhythm: Sinus Rhythm Rhythm change?: Y MD Notified?: N - MD Response: Latest Rojas Fall Score: Fall Risk: Safety Measures: Call light Within Reach, Bed Alarm Zone 2, Side Rails Side Rails x3, Bed position Low and Locked. Fall Precautions: Yellow Socks Door Sign Patient Fall Education Report given to .
--- NOTE | 2020-01-06 07:35 | NUR ---
NURSE NOTES: LATE ENTRY: RECEIVED REPORT FROM KULDEEP Pham PT IN BED, SEMI FOWLERS. A/OX2-3. PUPILS SLUGGISH. AFEBRILE 98 ORAL. SR ON MONITOR. ON 2L NC. SATING 95%. NOTABLE COUGH. NO SPUTUM. LUNGS DIMINISHED. ABDOMEN FLAT. NON TENDER. PT DIET EASY CHEW SOFT, NO ADDED SALT. NEEDS ASSISTANCE WITH MEALS. BOWEL SOUNDS ACTIVE. NO BM AT THIS TIME. PT VOIDS, USES URINAL. YELLOW URINE. SKIN- SEE ASSESSMENT. IV LT AC 20G HANDS, RT FA 22G, PATENT. TRACE EDEMA OF UPPER EXTREMITIES. STANDARD ISOLATION IN PLACE. BED, LOW AND LOCKED. WILL CONTINUE TO MONITOR PT. Addendum: 01/06/20 at 2001 by Lona oTbias RN PT HAS OLD RT HUMERUS FX, CAUSING NOTABLE UPPER ARM DEFORMITY.
[2020-01-06] MEDS: Carvedilol 6.25mg Tab ORAL SCH ×2 (08:43→22:02)
[2020-01-06] MEDS ORDERED: Tubing IV Secondary IV ONE (09:34)
[2020-01-06] MEDS ORDERED: NS 275ml ONE (09:34)
--- NOTE | 2020-01-06 11:00 | NUR ---
NURSE NOTES: LATE ENTRY: RECEIVE CALL FROM ARACELIS Bhakta [phone] AND CELL [phone]. WAS GIVEN UPDATE ON PT STATUS. WILL LIKELY NOT BE D/C TODAY, POSSIBLE TRANSFER OUT OF ICU. PT STABLE, MILD FORGETFULNESS.
--- NOTE | 2020-01-06 12:12 | NUR ---
NURSE NOTES: PT IN BED, HIGH FOWLERS. TV ON. A/OX3. AFEBRILE 98 ORAL. SR ON MONITOR. ON 2L NC. SATING 95%. NOTABLE COUGH. PT DIET EASY CHEW SOFT, NO ADDED SALT. NEEDS ASSISTANCE WITH MEALS. ATE 100% OF MEAL. NO BM. PT INCONTINENT. CLEANED. WAS INFORMED OF PLACEMENT OF URINAL. YELLOW URINE. IV LT AC 20G HANDS, RT FA 22G, PATENT. PT NO/ C/O PAIN OR PALPITATIONS. STANDARD ISOLATION IN PLACE. BED, LOW AND LOCKED. WILL CONTINUE TO MONITOR PT.
--- NOTE | 2020-01-06 13:00 | NUR ---
NURSE NOTES: LATE ENTRY: MD. LEAVITT HERE TO SEE PT. NO AM LABS, WILL PLACE STAT. HOWEVER K WAS REPLACED YESTERDAY. INFORMED PT CONVERTED AT 0000. HELD PO THIS AM FOR HR <65.
[2020-01-06 13:17] LABS: BASOPHILS % (AUTO) 0.6 % (0.0-2.0); EOSINOPHILS % (AUTO) 5.4 % (0.0-3.0); HEMOGLOBIN 9.7 G/DL (14.2-18.0); LYMPHOCYTES % (AUTO) 11.7 % (20.0-45.0); MEAN CORPUSCULAR VOLUME 98 FL (80-99); MONOCYTES % (AUTO) 11.5 % (1.0-10.0); NEUTROPHILS % (AUTO) 70.8 % (45.0-75.0); PLATELET COUNT 244 K/UL (150-450); RED BLOOD COUNT 3.25 M/UL (4.70-6.10); RED CELL DISTRIBUTION WIDTH 14.3 % (11.6-14.8); WHITE BLOOD COUNT 10.1 K/UL (4.8-10.8)
[2020-01-06 13:25] LABS: ANION GAP 6 mmol/L (5-15); BLOOD UREA NITROGEN 14 mg/dL (7-18); CALCIUM 8.2 MG/DL (8.5-10.1); CARBON DIOXIDE 25 MMOL/L (21-32); CHLORIDE 101 MMOL/L (98-107); CREATININE 1.3 MG/DL (0.55-1.30); POTASSIUM 3.7 MMOL/L (3.5-5.1); SODIUM 132 MMOL/L (136-145)
[2020-01-06 13:29] LABS: ALANINE AMINOTRANSFERASE 15 U/L (12-78); ALBUMIN 1.8 G/DL (3.4-5.0); ALBUMIN/GLOBULIN RATIO 0.4 (1.0-2.7); ALKALINE PHOSPHATASE 90 U/L (46-116); ASPARTATE AMINO TRANSFERASE 26 U/L (15-37); BILIRUBIN,TOTAL 0.3 MG/DL (0.2-1.0)
--- NOTE | 2020-01-06 15:21 | General Progress Note ---
Subjective ROS Limited/Unobtainable: No Constitutional: Reports: malaise, weakness HEENT: Reports: no symptoms Cardiovascular: Reports: no symptoms Respiratory: Reports: no symptoms Gastrointestinal/Abdominal: Reports: no symptoms Genitourinary: Reports: no symptoms Neurologic/Psychiatric: Reports: no symptoms Endocrine: Reports: no symptoms Hematologic/Lymphatic: Reports: no symptoms Allergies: Coded Allergies: ASPIRIN (Verified Allergy, Unknown, Rash, 04/07/13) ATORVASTATIN (Verified Allergy, Unknown, HIP PAIN, 04/08/13) HIP PAIN CELECOXIB (Verified Allergy, Unknown, Rash, 04/08/13) RASH CODEINE (Verified Allergy, Rash, 04/08/13) IBUPROFEN (Verified Adverse Reaction, Unknown, 04/08/13) ITCHING All Systems: reviewed and negative except above Subjective No new complaints. Decreased shortness of breath. No SVT. Denies chest pain. Heart rate has been well controlled. Remains on IV antibiotics Urine culture is noted. Objective Last 24 Hour Vital Signs Date Time Temp Pulse Resp B/P (MAP) Pulse Ox O2 Delivery O2 Flow Rate FiO2 01/06/20 15:00 63 21 116/72 (87) 98 01/06/20 14:00 65 19 118/61 (80) 96 01/06/20 13:00 62 20 99/54 (69) 95 01/06/20 12:00 98.7 62 18 118/64 (82) 95 01/06/20 11:00 74 22 131/71 (91) 96 01/06/20 10:00 70 25 125/63 (83) 95 01/06/20 09:00 67 21 127/68 (87) 99 01/06/20 08:43 64 120/66 01/06/20 08:38 63 18 120/66 (84) 99 01/06/20 08:00 69 20 121/56 (77) 99 01/06/20 07:25 97 Nasal Cannula 3.0 32 01/06/20 07:00 98.3 67 23 115/59 (77) 97 01/06/20 06:00 66 22 131/63 (85) 100 01/06/20 05:59 68 124/68 01/06/20 05:00 63 22 124/68 (86) 96 01/06/20 04:00 98.0 67 19 112/59 (76) 95 01/06/20 04:00 63 01/06/20 04:00 Nasal Cannula 2.0 01/06/20 03:00 66 22 108/56 (73) 100 01/06/20 02:00 70 20 123/73 (90) 100 01/06/20 01:00 69 23 136/68 (90) 100 01/06/20 00:00 71 01/06/20 00:00 Nasal Cannula 2.0 01/06/20 00:00 97.2 66 17 122/55 (77) 100 01/05/20 23:32 71 110/37 01/05/20 23:00 78 23 110/37 (61) 100 01/05/20 22:00 67 22 137/61 (86) 98 01/05/20 21:00 62 21 135/59 (84) 100 01/05/20 20:53 63 122/63 01/05/20 20:00 65 01/05/20 20:00 Nasal Cannula 2.0 01/05/20 20:00 97.8 63 22 124/62 (82) 100 01/05/20 19:29 100 Nasal Cannula 3.0 32 01/05/20 19:00 65 18 114/68 (83) 100 01/05/20 18:09 72 117/63 01/05/20 18:00 67 22 117/63 (81) 99 01/05/20 17:00 63 21 111/48 (69) 98 01/05/20 16:29 2.0 01/05/20 16:13 Nasal Cannula 2.0 01/05/20 16:00 69 21 105/72 (83) 100 01/05/20 15:36 66 Intake and Output 01/05/20 01/06/20 19:00 07:00 Intake Total 605.81 ml 400 ml Output Total 350 ml 490 ml Balance 255.81 ml -90 ml Intake Oral 440 ml 400 ml IV Total 165.81 ml Output Urine Total 350 ml 490 ml # Voids 1 Laboratory Tests 01/06/20 12:50: White Blood Count 10.1, Red Blood Count 3.25L, Hemoglobin 9.7L, Hematocrit 32.0L , Mean Corpuscular Volume 98, Mean Corpuscular Hemoglobin 29.8, Mean Corpuscular Hemoglobin Concent 30.3L, Red Cell Distribution Width 14.3, Platelet Count 244, Mean Platelet Volume 6.2L, Neutrophils (%) (Auto) 70.8, Lymphocytes (%) (Auto) 11.7L, Monocytes (%) (Auto) 11.5H, Eosinophils (%) (Auto) 5.4H, Basophils (%) (Auto) 0.6, Sodium Level 132L, Potassium Level 3.7, Chloride Level 101, Carbon Dioxide Level 25, Anion Gap 6, Blood Urea Nitrogen 14, Creatinine 1.3, Estimat Glomerular Filtration Rate > 60, Glucose Level 112H, Calcium Level 8.2L, Magnesium Level 2.0, Total Bilirubin 0.3, Aspartate Amino Transf (AST/SGOT) 26, Alanine Aminotransferase (ALT/SGPT) 15, Alkaline Phosphatase 90, Total Protein 6.2L, Albumin 1.8L, Globulin 4.4, Albumin/Globulin Ratio 0.4L Height (Feet): 5 Height (Inches): 10.00 Weight (Pounds): 185 General Appearance: WD/WN, alert EENT: PERRL/EOMI Neck: non-tender, normal alignment, supple Cardiovascular: normal peripheral pulses, normal rate Respiratory/Chest: chest wall non-tender, lungs clear, normal breath sounds, no respiratory distress, no accessory muscle use Abdomen: normal bowel sounds, non tender, soft, no organomegaly, no mass Edema: no edema noted Arm (L), no edema noted Arm (R) Neurologic: artificial flower maker II-XII grossly normal, alert, oriented x 3 Assessment/Plan Problem List: (1) UTI (urinary tract infection) ICD Codes: N39.0 - Urinary tract infection, site not specified SNOMED: 37815074 (2) Rheumatoid arthritis ICD Codes: M06.9 - Rheumatoid arthritis, unspecified SNOMED: 76242396 (3) CAD (coronary artery disease) ICD Codes: I25.10 - Atherosclerotic heart disease of [place] coronary artery without angina pectoris SNOMED: 81245176 (4) CHF (congestive heart failure), NYHA class II ICD Codes: I50.9 - Heart failure, unspecified SNOMED: 834556286, 438621137 (5) Atrial flutter with rapid ventricular response ICD Codes: I48.92 - Unspecified atrial flutter SNOMED: 6331655, 6366347 Status: stable Assessment/Plan: Continue cardiac treatment. Monitor heart rate IV antibiotics Follow cultures and sensitivity Supplemental oxygen as needed As needed breathing treatments Antiplatelet treatment DVT and stress ulcer prophylaxis Anjum Gaston MD Jan 06, 2020 15:21
--- NOTE | 2020-01-06 15:45 | Cardiology Progress Note ---
Subjective DATE OF SERVICE: Jan 06, 2020 Denies CP, palps or SOB. Monitor: Sinus bradyarrhythmia with PAC's Remains on oral diltiazem and carvedilol. WBC count normalizing on empiric therapy. Potassium corrected. Objective Last 24 Hour Vital Signs Date Time Temp Pulse Resp B/P (MAP) Pulse Ox O2 Delivery O2 Flow Rate FiO2 01/06/20 15:00 63 21 116/72 (87) 98 01/06/20 14:00 65 19 118/61 (80) 96 01/06/20 13:00 62 20 99/54 (69) 95 01/06/20 12:00 98.7 62 18 118/64 (82) 95 01/06/20 11:00 74 22 131/71 (91) 96 01/06/20 10:00 70 25 125/63 (83) 95 01/06/20 09:00 67 21 127/68 (87) 99 01/06/20 08:43 64 120/66 01/06/20 08:38 63 18 120/66 (84) 99 01/06/20 08:00 69 20 121/56 (77) 99 01/06/20 07:25 97 Nasal Cannula 3.0 32 01/06/20 07:00 98.3 67 23 115/59 (77) 97 01/06/20 06:00 66 22 131/63 (85) 100 01/06/20 05:59 68 124/68 01/06/20 05:00 63 22 124/68 (86) 96 01/06/20 04:00 98.0 67 19 112/59 (76) 95 01/06/20 04:00 63 01/06/20 04:00 Nasal Cannula 2.0 01/06/20 03:00 66 22 108/56 (73) 100 01/06/20 02:00 70 20 123/73 (90) 100 01/06/20 01:00 69 23 136/68 (90) 100 01/06/20 00:00 71 01/06/20 00:00 Nasal Cannula 2.0 01/06/20 00:00 97.2 66 17 122/55 (77) 100 01/05/20 23:32 71 110/37 01/05/20 23:00 78 23 110/37 (61) 100 01/05/20 22:00 67 22 137/61 (86) 98 01/05/20 21:00 62 21 135/59 (84) 100 01/05/20 20:53 63 122/63 01/05/20 20:00 65 01/05/20 20:00 Nasal Cannula 2.0 01/05/20 20:00 97.8 63 22 124/62 (82) 100 01/05/20 19:29 100 Nasal Cannula 3.0 32 01/05/20 19:00 65 18 114/68 (83) 100 01/05/20 18:09 72 117/63 01/05/20 18:00 67 22 117/63 (81) 99 01/05/20 17:00 63 21 111/48 (69) 98 01/05/20 16:29 2.0 01/05/20 16:13 Nasal Cannula 2.0 01/05/20 16:00 69 21 105/72 (83) 100 ROS: no change from my evaluation of 01/04/20. HEENT: normal ENT inspection RHYTHM: NSR, SB, PACs, other - AFib/flutter LUNGS: lungs clear bilaterally CARDIAC: normal rate, normal S1 and S2, gallop/S4 ABDOMEN: normal bowel sounds, non tender, soft EXTREMITIES: No edema, other - Large joint deformities c/w rheumatoid arthritis Laboratory Tests Test 01/06/20 12:50 White Blood Count 10.1 K/UL (4.8-10.8) Red Blood Count 3.25 M/UL (4.70-6.10) L Hemoglobin 9.7 G/DL (14.2-18.0) L Hematocrit 32.0 % (42.0-52.0) L Mean Corpuscular Volume 98 FL (80-99) Mean Corpuscular Hemoglobin 29.8 PG (27.0-31.0) Mean Corpuscular Hemoglobin Concent 30.3 G/DL (32.0-36.0) L Red Cell Distribution Width 14.3 % (11.6-14.8) Platelet Count 244 K/UL (150-450) Mean Platelet Volume 6.2 FL (6.5-10.1) L Neutrophils (%) (Auto) 70.8 % (45.0-75.0) Lymphocytes (%) (Auto) 11.7 % (20.0-45.0) L Monocytes (%) (Auto) 11.5 % (1.0-10.0) H Eosinophils (%) (Auto) 5.4 % (0.0-3.0) H Basophils (%) (Auto) 0.6 % (0.0-2.0) Sodium Level 132 MMOL/L (136-145) L Potassium Level 3.7 MMOL/L (3.5-5.1) Chloride Level 101 MMOL/L (98-107) Carbon Dioxide Level 25 MMOL/L (21-32) Anion Gap 6 mmol/L (5-15) Blood Urea Nitrogen 14 mg/dL (7-18) Creatinine 1.3 MG/DL (0.55-1.30) Estimat Glomerular Filtration Rate > 60 mL/min (>60) Glucose Level 112 MG/DL (74-106) H Calcium Level 8.2 MG/DL (8.5-10.1) L Magnesium Level 2.0 MG/DL (1.8-2.4) Total Bilirubin 0.3 MG/DL (0.2-1.0) Aspartate Amino Transf (AST/SGOT) 26 U/L (15-37) Alanine Aminotransferase (ALT/SGPT) 15 U/L (12-78) Alkaline Phosphatase 90 U/L (46-116) Total Protein 6.2 G/DL (6.4-8.2) L Albumin 1.8 G/DL (3.4-5.0) L Globulin 4.4 g/dL Albumin/Globulin Ratio 0.4 (1.0-2.7) L Microbiology Date/Time Source Procedure Growth Status 01/05/20 05:00 Urine,Clean Catch Urine Culture - Preliminary Strep Species, Gamma-Hemolytic Resulted 01/04/20 15:30 Nasopharynx SARS-CoV-2 RdRp Gene Assay - Final Complete 01/04/20 15:20 Rectum - Final NO CARBAPENEM-RESISTANT ENTEROBACTERI... Complete 01/04/20 15:20 Rectum VRE Culture - Final NO VANCOMYCIN RESISTANT ENTEROCOCCUS ... Complete 01/04/20 15:20 Nasal Nares MRSA Culture - Final NO METHICILLIN RESISTANT STAPH AUREUS... Complete Assessment/Plan Assessment/Plan Paroxysmal Atrial flutter/fib with RVR; now converted to sinus rhythm Sinus bradycardia due to meds Ischemic cardiomyopathy Rheumatoid arthritis Acute on chronic diastolic CHF Hypokalemia Leukocytosis Severe protein/calorie malnutrition Titrate diltiazem and beta neli Off anti-coagulation; high fall risk Empiric antibiotics Potassium repletion as needed. Continue clopidgrel Protein supplement Mobilize Ehsan Lyon MD Jan 06, 2020 15:45
--- NOTE | 2020-01-06 16:15 | NUR ---
NURSE NOTES: NURSE HAND-OFF REPORT: Latest Vital Signs: Temperature 98.0 , Pulse 63 , B/P 116 /72 , Respiratory Rate 20 , O2 SAT 97 , Nasal Cannula, O2 Flow Rate 3.0 . Vital Sign Comment: EKG Rhythm: Sinus Rhythm Rhythm change?: N MD Notified?: N - MD Response: Latest Rojas Fall Score: Fall Risk: Safety Measures: Call light Within Reach, Bed Alarm Zone 2, Side Rails Side Rails x3, Bed position Low and Locked. Fall Precautions: Yellow Socks Door Sign Patient Fall Education Report given to RONALDO Hammond
--- NOTE | 2020-01-06 16:20 | NUR ---
NURSES NOTES: Received report from MARIA R Zamorano. Pt is A/O x2-3 but forgetful and confused but verbally responsive. Pt is on 3L via NC and saturating @ 96%. No SOB or acute distress noted. No pain noted. Pt's skin is intact. Pt belongings gone through with nurse and verified. Bed in lowest position and locked. Side rails are up x 3. Will continue plan of care.
--- NOTE | 2020-01-06 16:38 | Cardiology Report ---
APPROVED REPORT EKG Measurement Heart [id number] <Conclusion> Atrial flutter with variable AV block Nonspecific T wave abnormality Abnormal ECG
--- NOTE | 2020-01-06 16:40 | Cardiology Report ---
APPROVED REPORT EKG Measurement Heart [id number] P-80 [id number] <Conclusion> Atrial flutter with variable AV block with premature ventricular or aberrantly conducted complexes Nonspecific ST and T wave abnormality Abnormal ECG
--- NOTE | 2020-01-06 19:51 | NUR ---
NURSE HAND-OFF REPORT: Important Events on Shift: Trasnfer from ICU Patient Status: Stable Diet: TOM Soft Easy Chew Pending Orders: Pending Results/Labs: Pending MD notification: Latest Vital Signs: Temperature 98.0 , Pulse 63 , B/P 116 /72 , Respiratory Rate 20 , O2 SAT 97 , Nasal Cannula, O2 Flow Rate 3.0 . Vital Sign Comment: EKG Rhythm: Sinus Rhythm Rhythm change?: N MD Notified?: N - MD Response: Latest Rojas Fall Score: Fall Risk: Safety Measures: Call light Within Reach, Bed Alarm Zone 2, Side Rails Side Rails x3, Bed position Low and Locked. Fall Precautions: Yellow Socks Door Sign Patient Fall Education Report given to Yareli.
--- NOTE | 2020-01-06 19:55 | NUR ---
NURSE NOTES: Patient received from MARIA R García. Patient is A/O x 2. Patient is able to verbalize his needs, no complaints as of the moment. Patient is able to stand up with assistance but has an unstable gait, bed side commode and urinal provided for the patient. Patient is on 2 L nasal cannula satting 94% with no signs of acute respiratory distress. Patient has left 20 gauge on his AC, patent and flushed. Bed is in the lowest position, call light within reach. Will continue to monitor.
[2020-01-06] MEDS: Tamsulosin 0.4mg cap ORAL SCH (22:03)
[2020-01-06] MEDS: Latanoprost 0.005% Opth 2.5ml Soln BOTH EYES SCH (22:03)
[2020-01-07] VITALS: BP 134/69
[2020-01-07 04:00] VITALS: BP 140/72
[2020-01-07] MEDS: dilTIAZem HCl 60mg tab ORAL SCH ×3 (06:39→12:24)
[2020-01-07] MEDS: Piperacillin/Tazobactam 3.375 GM in NS 110 ML IVPB SCH ×2 (06:40→13:24)
--- NOTE | 2020-01-07 07:30 | NUR ---
NURSE HAND-OFF REPORT: Important Events on Shift:[Patient able to stand up and ambulate but needs assistance] Patient Status: [Stable] Diet: [No added salt Soft Easy chew diet] Pending Orders: [] Pending Results/Labs:[] Pending MD notification:[] Latest Vital Signs: Temperature 97.2 , Pulse 84 , B/P 140 /72 , Respiratory Rate 20 , O2 SAT 96 , Nasal Cannula, O2 Flow Rate 2.0 . Vital Sign Comment: [] EKG Rhythm: Sinus Rhythm Rhythm change?: N MD Notified?: N - MD Response: Latest Rojas Fall Score: Fall Risk: Safety Measures: Call light Within Reach, Bed Alarm Zone 2, Side Rails Side Rails x3, Bed position Low and Locked. Fall Precautions: Yellow Socks Door Sign Patient Fall Education Report given to [MARIA R García].
--- NOTE | 2020-01-07 07:41 | NUR ---
NURSE NOTES: Pt received from MARIA R Downs. Patient is A/O x 2 but confused and forgetful and able verbally responsive. No SOB or acute distress. Pt is on 2L via NC and saturating well. Patient is able to stand up with assistance of staff member but has an unstable gait. Pt has a BC and uses frequently. Patient has left 20 gauge on his AC, patent and flushed. Bed is in the lowest position, call light within reach. Will continue to monitor.
[2020-01-07 08:00] VITALS: BP 129/66
[2020-01-07 08:01] LABS: HEMATOCRIT 34.5 % (42.0-52.0); HEMOGLOBIN 10.5 G/DL (14.2-18.0); MEAN CORPUSCULAR VOLUME 99 FL (80-99); PLATELET COUNT 278 K/UL (150-450); RED CELL DISTRIBUTION WIDTH 14.1 % (11.6-14.8); WHITE BLOOD COUNT 7.4 K/UL (4.8-10.8)
[2020-01-07 08:31] LABS: ANION GAP 8 mmol/L (5-15); BLOOD UREA NITROGEN 11 mg/dL (7-18); CALCIUM 8.1 MG/DL (8.5-10.1); CARBON DIOXIDE 24 MMOL/L (21-32); CHLORIDE 104 MMOL/L (98-107); CREATININE 1.1 MG/DL (0.55-1.30); SODIUM 136 MMOL/L (136-145)
[2020-01-07] MEDS: Carvedilol 6.25mg Tab ORAL SCH (08:45)
--- NOTE | 2020-01-07 09:18 | General Progress Note ---
Subjective ROS Limited/Unobtainable: No Constitutional: Reports: malaise, weakness HEENT: Reports: no symptoms Cardiovascular: Reports: no symptoms Respiratory: Reports: no symptoms Gastrointestinal/Abdominal: Reports: no symptoms Genitourinary: Reports: no symptoms Neurologic/Psychiatric: Reports: no symptoms Endocrine: Reports: no symptoms Hematologic/Lymphatic: Reports: no symptoms Allergies: Coded Allergies: ASPIRIN (Verified Allergy, Unknown, Rash, 04/07/13) ATORVASTATIN (Verified Allergy, Unknown, HIP PAIN, 04/08/13) HIP PAIN CELECOXIB (Verified Allergy, Unknown, Rash, 04/08/13) RASH CODEINE (Verified Allergy, Rash, 04/08/13) IBUPROFEN (Verified Adverse Reaction, Unknown, 04/08/13) ITCHING All Systems: reviewed and negative except above Subjective patient transferred out of the ICU to a telemetry bed. No overnight events. No SVT or tachycardia noted. A few PVCs on monitor. Denies chest pain or shortness of breath. No fevers or chills. Objective Last 24 Hour Vital Signs Date Time Temp Pulse Resp B/P (MAP) Pulse Ox O2 Delivery O2 Flow Rate FiO2 01/07/20 08:45 65 129/66 01/07/20 08:05 Nasal Cannula 2.0 01/07/20 08:00 65 01/07/20 08:00 96.6 61 20 129/66 (87) 96 01/07/20 06:39 84 140/72 01/07/20 04:00 97.2 64 20 140/72 (94) 96 01/07/20 04:00 84 01/07/20 00:00 65 01/07/20 00:00 60 134/69 01/07/20 00:00 98.2 67 20 134/69 (90) 96 01/06/20 22:02 62 131/71 01/06/20 21:00 Nasal Cannula 2.0 01/06/20 20:00 98.1 62 20 131/71 (91) 95 01/06/20 20:00 55 01/06/20 19:35 97 Nasal Cannula 3.0 32 01/06/20 18:24 63 116/72 01/06/20 16:00 62 01/06/20 16:00 98.0 68 20 110/62 (78) 97 01/06/20 15:00 63 21 116/72 (87) 98 01/06/20 14:00 65 19 118/61 (80) 96 01/06/20 13:00 62 20 99/54 (69) 95 01/06/20 12:00 Nasal Cannula 2.0 01/06/20 12:00 98.7 62 18 118/64 (82) 95 01/06/20 11:00 74 22 131/71 (91) 96 01/06/20 10:00 70 25 125/63 (83) 95 Intake and Output 01/06/20 01/07/20 19:00 07:00 Intake Total 407.5 ml Output Total 1203 ml Balance -795.5 ml Intake Oral 380 ml IV Total 27.5 ml Output Urine Total 1203 ml # Voids 3 3 # Bowel Movements 1 Laboratory Tests 01/06/20 12:50: White Blood Count 10.1, Red Blood Count 3.25L, Hemoglobin 9.7L, Hematocrit 32.0L , Mean Corpuscular Volume 98, Mean Corpuscular Hemoglobin 29.8, Mean Corpuscular Hemoglobin Concent 30.3L, Red Cell Distribution Width 14.3, Platelet Count 244, Mean Platelet Volume 6.2L, Neutrophils (%) (Auto) 70.8, Lymphocytes (%) (Auto) 11.7L, Monocytes (%) (Auto) 11.5H, Eosinophils (%) (Auto) 5.4H, Basophils (%) (Auto) 0.6, Sodium Level 132L, Potassium Level 3.7, Chloride Level 101, Carbon Dioxide Level 25, Anion Gap 6, Blood Urea Nitrogen 14, Creatinine 1.3, Estimat Glomerular Filtration Rate > 60, Glucose Level 112H, Calcium Level 8.2L, Magnesium Level 2.0, Total Bilirubin 0.3, Aspartate Amino Transf (AST/SGOT) 26, Alanine Aminotransferase (ALT/SGPT) 15, Alkaline Phosphatase 90, Total Protein 6.2L, Albumin 1.8L, Globulin 4.4, Albumin/Globulin Ratio 0.4L 01/07/20 07:30: White Blood Count 7.4, Red Blood Count 3.50L, Hemoglobin 10.5L, Hematocrit 34.5L , Mean Corpuscular Volume 99, Mean Corpuscular Hemoglobin 30.0, Mean Corpuscular Hemoglobin Concent 30.4L, Red Cell Distribution Width 14.1, Platelet Count 278, Mean Platelet Volume 6.6, Neutrophils (%) (Auto) , Lymphocytes (%) (Auto) , Monocytes (%) (Auto) , Eosinophils (%) (Auto) , Basophils (%) (Auto) , Sodium Level 136, Potassium Level 4.0, Chloride Level 104, Carbon Dioxide Level 24, Anion Gap 8, Blood Urea Nitrogen 11, Creatinine 1.1, Estimat Glomerular Filtration Rate > 60, Glucose Level 94, Calcium Level 8.1L, Differential Total Cells Counted 100, Neutrophils % (Manual) 58, Lymphocytes % (Manual) 26, Monocytes % (Manual) 13H, Eosinophils % (Manual) 3, Basophils % (Manual) 0, Band Neutrophils 0, Platelet Estimate Adequate, Platelet Morphology Normal, Anisocytosis 1+ Height (Feet): 5 Height (Inches): 10.00 Weight (Pounds): 185 Objective General Appearance: WD/WN, alert EENT: PERRL/EOMI Neck: non-tender, normal alignment, supple Cardiovascular: normal peripheral pulses, normal rate Respiratory/Chest: chest wall non-tender, lungs clear, normal breath sounds, no respiratory distress, no accessory muscle use Abdomen: normal bowel sounds, non tender, soft, no organomegaly, no mass Edema: no edema noted Arm (L), no edema noted Arm (R) 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, alert, oriented x 3 Assessment/Plan Problem List: (1) UTI (urinary tract infection) ICD Codes: N39.0 - Urinary tract infection, site not specified SNOMED: 30258696 (2) Rheumatoid arthritis ICD Codes: M06.9 - Rheumatoid arthritis, unspecified SNOMED: 67759636 (3) CAD (coronary artery disease) ICD Codes: I25.10 - Atherosclerotic heart disease of [place] coronary artery without angina pectoris SNOMED: 81356192 (4) CHF (congestive heart failure), NYHA class II ICD Codes: I50.9 - Heart failure, unspecified SNOMED: 498729580, 772988332 (5) Atrial flutter with rapid ventricular response ICD Codes: I48.92 - Unspecified atrial flutter SNOMED: 3180843, 9812057 Status: stable Assessment/Plan: Continue cardiac treatment. Monitor heart rate IV antibiotics Follow cultures and sensitivity Supplemental oxygen as needed As needed breathing treatments Antiplatelet treatment DVT and stress ulcer prophylaxis Anjum Gaston MD Jan 07, 2020 09:18
[2020-01-07 12:00] VITALS: BP 116/62
--- NOTE | 2020-01-07 13:50 | NUR ---
NURSES NOTES: Received a discharge order from Dr. Lyon and notified caregiver Rere of the time that she would be able to pick the pt up. She notified me that his sister and her would be at the hospital around 3:30pm. Notified charge nurse of olive picker time.
[2020-01-07] MEDS ORDERED: NS 275ml ONE (15:43)
--- NOTE | 2020-01-07 15:50 | NUR ---
NURSES NOTES: Pt's caregiver came to the floor and assisted pt with [employer] via wheelchair down to the car. Explained to caregiver regarding medications changes. All discharge paperwork given to caregiver. [employer] assisted pt to private car. Pt in stable condition and IV removed and ID band also removed.
[2020-01-07 16:00] VITALS: BP 120/64
--- NOTE | 2020-01-07 16:42 | NUR ---
PT Note PT cristina completed, treatment initiated. Patient was cooperative but has muscle weakness and decreased LE ROM specially in both ankles, affecting his balance and gait stability. Patient needs PT to increase his ROM, muscle strength and balance to improve his safety in mobility and gait. Addendum: 01/07/20 at 1643 by SAMUEL LEW PT Amended: Links added.
--- NOTE | 2020-01-07 18:32 | Cardiology Progress Note ---
Subjective DATE OF SERVICE: Jan 07, 2020 Denies CP, palps or SOB. Monitor: Sinus with rare PAC's Remains on oral diltiazem and carvedilol. WBC count normalized on empiric therapy. Potassium corrected. Objective Last 24 Hour Vital Signs Date Time Temp Pulse Resp B/P (MAP) Pulse Ox O2 Delivery O2 Flow Rate FiO2 01/07/20 16:00 96.9 64 18 120/64 (82) 98 01/07/20 12:24 65 129/66 01/07/20 12:00 42 01/07/20 12:00 96.9 62 18 116/62 (80) 96 01/07/20 08:45 65 129/66 01/07/20 08:05 Nasal Cannula 2.0 01/07/20 08:00 65 01/07/20 08:00 96.6 61 20 129/66 (87) 96 01/07/20 06:39 84 140/72 01/07/20 04:00 97.2 64 20 140/72 (94) 96 01/07/20 04:00 84 01/07/20 00:00 65 01/07/20 00:00 60 134/69 01/07/20 00:00 98.2 67 20 134/69 (90) 96 01/06/20 22:02 62 131/71 01/06/20 21:00 Nasal Cannula 2.0 01/06/20 20:00 98.1 62 20 131/71 (91) 95 01/06/20 20:00 55 01/06/20 19:35 97 Nasal Cannula 3.0 32 ROS: no change from my evaluation of 01/04/20. HEENT: normal ENT inspection RHYTHM: NSR, SB, PACs, other - AFib/flutter LUNGS: lungs clear bilaterally CARDIAC: normal rate, normal S1 and S2, gallop/S4 ABDOMEN: normal bowel sounds, non tender, soft EXTREMITIES: No edema, other - Large joint deformities c/w rheumatoid arthritis Laboratory Tests Test 01/07/20 07:30 White Blood Count 7.4 K/UL (4.8-10.8) Red Blood Count 3.50 M/UL (4.70-6.10) L Hemoglobin 10.5 G/DL (14.2-18.0) L Hematocrit 34.5 % (42.0-52.0) L Mean Corpuscular Volume 99 FL (80-99) Mean Corpuscular Hemoglobin 30.0 PG (27.0-31.0) Mean Corpuscular Hemoglobin Concent 30.4 G/DL (32.0-36.0) L Red Cell Distribution Width 14.1 % (11.6-14.8) Platelet Count 278 K/UL (150-450) Mean Platelet Volume 6.6 FL (6.5-10.1) Neutrophils (%) (Auto) % (45.0-75.0) Lymphocytes (%) (Auto) % (20.0-45.0) Monocytes (%) (Auto) % (1.0-10.0) Eosinophils (%) (Auto) % (0.0-3.0) Basophils (%) (Auto) % (0.0-2.0) Differential Total Cells Counted 100 Neutrophils % (Manual) 58 % (45-75) Lymphocytes % (Manual) 26 % (20-45) Monocytes % (Manual) 13 % (1-10) H Eosinophils % (Manual) 3 % (0-3) Basophils % (Manual) 0 % (0-2) Band Neutrophils 0 % (0-8) Platelet Estimate Adequate Platelet Morphology Normal Anisocytosis 1+ Sodium Level 136 MMOL/L (136-145) Potassium Level 4.0 MMOL/L (3.5-5.1) Chloride Level 104 MMOL/L (98-107) Carbon Dioxide Level 24 MMOL/L (21-32) Anion Gap 8 mmol/L (5-15) Blood Urea Nitrogen 11 mg/dL (7-18) Creatinine 1.1 MG/DL (0.55-1.30) Estimat Glomerular Filtration Rate > 60 mL/min (>60) Glucose Level 94 MG/DL (74-106) Calcium Level 8.1 MG/DL (8.5-10.1) L Microbiology Date/Time Source Procedure Growth Status 01/05/20 05:00 Urine,Clean Catch Urine Culture - Final Mixed Urogenital Contaminants Complete Assessment/Plan Assessment/Plan Paroxysmal Atrial flutter/fib with RVR; now converted to sinus rhythm Sinus bradycardia due to meds - stable Ischemic cardiomyopathy Rheumatoid arthritis Acute on chronic diastolic CHF Hypokalemia Leukocytosis likely due to UTI Severe protein/calorie malnutrition Continue long acting diltiazem and low dose beta neli Off anti-coagulation; high fall risk Empiric antibiotics - oral Augmentin to complete course. Potassium repletion as needed. Continue clopidgrel Protein supplement Mobilize at home with HH Ehsan Lyon MD Jan 07, 2020 18:32
--- NOTE | 2020-01-10 11:01 | Discharge Summary ---
Discharge Summary Discharge Summary _ DATE OF ADMISSION: 01/04/2020 DATE OF DISCHARGE: 01/07/2020 DISCHARGED BY: Dr. Gaston REASON FOR ADMISSION: 83 years old male with past medical history of hypertension/ hypertensive heart disease, coronary artery disease, status post triple bypass, borderline diabetes ( controlled by diet), hypertriglyceridemia, BPH, diverticular disease with a history of diverticulitis , B12 deficiency due to pernicious anemia, glaucoma with blindness , allergic rhinitis, history of ETOH abuse years ago , rheumatoid arthritis, presented to emergency department with complaint of rapid heartbeat. Apparently patient had EKG at the doctor's office earlier that day and noted to have a fast heart rate in 140s. Patient was also weak , confused and hypoxic with oxygen saturation 84% on room air. Patient was driven to the emergency room by his doctor for further evaluation. Patient denied headache, vision changes, dizziness. No fever or chills. No chest pain or shortness of breath. Upon evaluation heart rate was in the 130. Troponin was negative. EKG revealed atrial flutter with rapid ventricular response and variable AV block, which was a new diagnosis for this patient. Pro BNP 8070 WBC 15.1 ,hemoglobin 10.3 ,hematocrit 34.2. BUN 21, creatinine 1.6. Glucose 116. Sodium 132. K-3.4 AST 39, ALT 27. Urinalysis revealed moderate bacteria, no pyuria, +2 protein, +1 leukocyte esterase. Rapid COVID-19 was negative Chest x-ray demonstrated elevation of the right hemidiaphragm, with adjacent streaky opacity at the right base, likely representing atelectasis versus scaring. Evidence of prior pelvic surgery and mediastinoscopy, multiple surgical clips ibarra ggesting CABG. Patient received Cardizem bolus , started on Cardizem drip and admitted for further management. CONSULTANTS: marriage and family social worker [facility]SE: Patient is admitted to ICU. Patient initially was on Cardizem drip. As heart rate stabilized, exam was transitioned to oral dosing in combination with beta-neli. Full anticoagulation with Eliquis for cardioembolic prophylaxis initiated. Volumes were closely monitored and therapy adjusted accordingly. Repeated troponin was negative as well Patient spontaneously converted to sinus rhythm. Blood pressure was managed with current regimen and remained stable. Antiplatelet therapy with Plavix (allergic to aspirin ) continued. Patient started on empiric antibiotics for UTI. Potassium was replaced. Prior to discharge her electrolytes stable. Protein supplements provided as per registered dietitian recommendation. Home medication continued Aspiration precaution maintained. GI prophylaxis provided. Flomax continued. Patient clinically stabilized and was ready for discharge home FINAL DIAGNOSES: Paroxysmal atrial flutter with rapid ventricular response Metabolic encephalopathy Acute on chronic diastolic congestive heart failure CHF NYHA class II Leukocytosis-resolved UTI Rheumatoid arthritis Severe protein calorie malnutrition Hyponatremia -resolved Hypokalemia -resolved DISCHARGE MEDICATIONS: See Medication Reconciliation list. DISCHARGE INSTRUCTIONS: Patient was discharged home. Follow up with primary care provider in one week. I have been assigned to dictate discharge summary for this account. I was not involved in the patient's management. Stella Acosta NP Jan 10, 2020 11:01
== END 2020-01-07 15:30 | disposition home or self-care (01) | DRG 308 ==
LOC: EMR 13:45 → ICU 13:59 → EDBEDREQ 15:54 → 2E 01-06 16:45
DX: I48.92 Unspecified atrial flutter (principal); I50.33 Acute on chronic diastolic (congestive) heart failure; G93.41 Metabolic encephalopathy; E43 Unspecified severe protein-calorie malnutrition; E87.1 Hypo-osmolality and hyponatremia; N39.0 Urinary tract infection, site not specified; I47.1 Supraventricular tachycardia; I11.0 Hypertensive heart disease with heart failure; Z68.26 Body mass index [BMI] 26.0-26.9, adult; Z88.6 Allergy status to analgesic agent; Z88.8 Allergy status to other drugs, medicaments and biological substances; I25.5 Ischemic cardiomyopathy; E11.9 Type 2 diabetes mellitus without complications; M06.9 Rheumatoid arthritis, unspecified; I25.10 Atherosclerotic heart disease of native coronary artery without angina pectoris; Z95.1 Presence of aortocoronary bypass graft; I25.118 Atherosclerotic heart disease of native coronary artery with other forms of angina pectoris; E78.1 Pure hyperglyceridemia; N40.0 Benign prostatic hyperplasia without lower urinary tract symptoms; K57.90 Diverticulosis of intestine, part unspecified, without perforation or abscess without bleeding; F10.11 Alcohol abuse, in remission; H40.9 Unspecified glaucoma; H54.7 Unspecified visual loss; R09.02 Hypoxemia; E87.6 Hypokalemia; D51.0 Vitamin B12 deficiency anemia due to intrinsic factor deficiency
CPT/HCPCS: 36415; 71045; 80048; 80053; 81003; 83735; 83880; 84484; 85007; 85025; 87081; 87086; 93005; 96365; 96375; 99291; J8499; U0002